=== PATIENT | female | born 1940 | race Caucasian/White ===

== ENCOUNTER 2019-10-08 15:24 | Outpatient (CLI) | payer MEDICARE, BC, SELFPAY ==
--- NOTE | ~2019-10-08 | US_ITS ---
EXAMINATION: US venous doppler UE DATE: 10/08/2019 16:00 INDICATION: Left upper extremity swelling. TECHNIQUE: Clark scale images with and without compression and Doppler images of the left upper extrem ity veins were obtained. COMPARISON: None. FINDINGS: The left internal jugular vein, subclavian vein, axillary vein, brachial veins, basilic vein, cephali c vein, radial vein, and ulnar vein are patent.] IMPRESSION: 1. Patent left upper extremity veins. No evidence of deep venous thrombosis. Reviewed, dictated and finalized at location A.
== END 2019-10-08 15:25 | disposition home or self-care (01) ==
PROVIDERS: PCP Family Medicine; Visit Provider Orthopaedic Surgery
DX: R22.32 Localized swelling, mass and lump, left upper limb (principal)
CPT/HCPCS: 93971

== ENCOUNTER 2020-03-02 13:58 | Outpatient (CLI) | payer MEDICARE, BC, SELFPAY ==
--- NOTE | ~2020-03-02 | MM_ITS ---
EXAMINATION: MM screening demetrice BI w sandra HISTORY: Screening TECHNIQUE: Craniocaudal and mediolateral oblique 3-D tomosynthesis images were obtained and synthetic 2-D images were generated. CAD analysis was submitted and interpreted. COMPARISON: Comparison to multiple prior studies sequentially, with oldest reviewed study dated 09/2013. BREAST PARENCHYMAL COMPOSITION: There are scattered areas of fibroglandular density. FINDINGS: There is no evidence of suspicious mass, calcification, or architectural distortion to sugg est malignancy in either breast. There has been no suspicious interval change. IMPRESSION: 1. No mammographic evidence of malignancy. 2. Recommend routine screening mammography in one year. BI-RADS Category 1: Negative Reviewed, dictated and finalized at location A. 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
== END 2020-03-02 13:59 | disposition home or self-care (01) ==
LOC: ANHIMG 14:00
PROVIDERS: PCP Family Medicine; Visit Provider Family Medicine
DX: Z12.31 Encounter for screening mammogram for malignant neoplasm of breast (principal)
CPT/HCPCS: 77063; 77067

== ENCOUNTER 2020-08-07 21:41 | Emergency (ER) | payer MEDICARE, BC, SELFPAY ==
--- NOTE | ~2020-08-07 | CT_ITS ---
EXAMINATION: CT brain wo con INDICATION: Head injury COMPARISON: None TECHNIQUE: Standard unenhanced head CT. The dose-length product (DLP) was 605.33 mGy-cm. The mA was a djusted according to patient size. Iterative reconstruction technique was employed. FINDINGS: There is no acute intraparenchymal hemorrhage. No evidence of mass lesion. No evidence of a cute infarction. There is mild periventricular and subcortical hypodensity probably related to small vessel ischemic disease. There is mild prominence of the sulci and ventricles related to cerebral atr ophy. Intracranial calcified cerebral atherosclerosis is noted. There are no extra-axial collections. There is no mass effect or midline shift. The orbits and soft tissues are unremarkable. The visuali zed sinuses and mastoid air cells are well aerated. IMPRESSION: 1. No acute intracranial abnormality. 2. Age related findings. Reviewed, dictated and finalized at location A.
--- NOTE | ~2020-08-07 | XR_ITS ---
EXAMINATION: XR shoulder LT min 2V INDICATION: Left shoulder pain after fall, shoulder replacement yesterday TECHNIQUE: Two views of the left shoulder are submitted. COMPARISON: None FINDINGS: There are expected changes of recent total shoulder arthroplasty. No fracture is identified . 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 Gas in the soft tissues likely rel ates to recent surgery. IMPRESSION: 1. Changes of left total shoulder arthroplasty without acute abnormality identified. Reviewed, dictated and finalized at location A. IMPRESSION: 1. Changes of left total shoulder arthroplasty without acute abnormality identi fied.
--- NOTE | ~2020-08-07 | CT_ITS ---
EXAMINATION: CT facial bones wo con DATE: 08/07/2020 22:44 INDICATION: Facial pain TECHNIQUE: Computed tomography (CT) of the facial bones and maxillofacial region was performed withou t intravenous contrast. The dose-length product (DLP) was 386.90 mGy-cm. Automated exposure control a nd iterative reconstruction technique were employed. COMPARISON: None. FINDINGS: There is facial soft tissue swelling of the nose and upper lip. No facial bone fracture is identified. The orbits are normal. The globes are intact. The paranasal sinuses are well aerated. The re is mild spondylosis of the visualized cervical spine. IMPRESSION: 1. Facial soft tissue swelling without facial bone fracture identified. Reviewed, dictated and finalized at location A.
[2020-08-07 21:41] VITALS: BP 125/57; PULSE 76; RESP 18; TEMP 36.9; O2SAT 98
--- NOTE | 2020-08-07 21:44 | ECG_ITS ---
Measurements Intervals [place] Rate: 94 P: 76 MA: 190 QRS: 80 QRSD: 149 T: 53 QT: 358 QTc: 448 Interpretive Statements SINUS RHYTHM RIGHT BUNDLE BRANCH BLOCK BASELINE ARTIFACT- I, II, AVR, AVL, AVF ABNORMAL ECG Electronically Signed On 08-11-2020 10:43:29 CDT by Kojo Vasquez D.O.
--- NOTE | 2020-08-07 22:03 | ED.FALL ---
HPI - Fall General Chief Complaint: Fall Stated Complaint: fall Time Seen by Provider: 08/07/20 21:46 Source: patient Mode of arrival: ambulatory Limitations: no limitations History of Present Illness HPI Narrative: Patient is a 79-year-old female complaining of left shoulder pain, facial pain after she fell face first after bending over to try to sit down and lost her balance prior to arrival. Patient states that she lost her balance. Patient recently had left shoulder surgery yesterday, reverse shoulder replacement . Patient denies any symptoms prior to the fall. Patient denies any headache, neck pain, chest pain, abdominal pain, back pain, hip pain or any other extremity pain/injury. Onset (ago): year(s) Related Data Home Medications Medication Instructions Recorded Confirmed baclofen 10 mg tablet 10 - 20 mg PO BID tablet 04/01/19 05/25/20 blood sugar diagnostic #10 each 04/01/19 05/25/20 blood-glucose meter #1 each 04/01/19 05/25/20 calcium carbonate 500 mg calcium 500 mg PO DAILY 04/01/19 05/25/20 (1,250 mg) tablet cholecalciferol (vitamin D3) 25 1,000 unit PO DAILY 04/01/19 05/25/20 mcg (1,000 unit) capsule multivit with min-folic 1 tablet PO DAILY 04/01/19 05/25/20 acid-lutein 400 mcg-250 mcg chewable tablet pen needle, diabetic 31 gauge x #30 each 04/01/19 05/25/20 5/16 hydrocodone-acetaminophen 0.5 - 1 tablet PO Q8H PRN 04/09/19 05/25/20 lansoprazole 15 mg capsule,delayed 15 mg PO DAILY 05/14/19 05/25/20 release loratadine 10 mg tablet 10 mg PO DAILY 05/14/19 05/25/20 hydroxyzine HCl 25 mg tablet 25 mg PO TID PRN 01/21/20 05/25/20 triamcinolone acetonide 0.05 % 1 applic TOPICAL DAILY 01/21/20 05/25/20 topical ointment Allergies Allergy/AdvReac Type Severity Reaction Status Date / Time clarithromycin Allergy Unknown metallic Verified 01/21/20 14:53 taste clonidine Allergy Unknown Confusion Verified 01/21/20 14:53 lisinopril Allergy Unknown Confusion Verified 01/21/20 14:53 Penicillins Allergy Unknown Anxiety Verified 01/21/20 14:53 Review of Systems Review of Systems: All systems reviewed & are unremarkable except as noted in HPI and below Constitutional: Constitutional: Denies body ache(s), Denies chills, Denies excessive sweating, Denies fatigue, Denies fever(s), Denies headache(s), Denies lethargy, Denies malaise, Denies weakness and Denies weight loss Eyes: Eyes: Denies blurry vision, Denies change in vision and Denies loss of vision ENT: Denies dizziness, Denies ear discharge, Denies headache(s), Denies epistaxis, Denies nasal congestion, Denies neck pain, Denies throat swelling and Denies tongue swelling Cardiovascular: Cardiovascular: Denies chest pain, Denies chest pain at rest, Denies chest pain with activity, Denies diaphoresis, Denies rapid heart rate, Denies edema, Denies irregular heart rhythm, Denies lightheadedness, Denies palpitations, Denies dyspnea and Denies dyspnea on exertion Respiratory: Respiratory: Denies chest congestion, Denies cough, Denies hemoptysis, Denies dyspnea and Denies dyspnea on exertion Gastrointestinal: Gastrointestinal: Denies abdominal pain, Denies melena, Denies hematochezia, Denies diarrhea, Denies nausea, Denies vomiting and Denies hematemesis Musculoskeletal: Musculoskeletal: Denies abnormal gait, Denies deformity, Denies joint swelling, Denies limited range of motion, Denies neck pain and Denies numbness Neurologic: Denies Abnormal speech present, Denies abnormal gait, Denies confusion, Denies dizziness, Denies headache(s), Denies focal weakness, Denies loss of vision, Denies numbness, Denies Other visual disturbances, Denies Sensory deficit (Neuro) and Denies weakness Psychiatric: Psychiatric: Denies confusion, Denies depression, Denies auditory hallucinations, Denies homicidal ideation and Denies suicidal ideation Endocrine: Endocrine: Denies cold intolerance, Denies excessive sweating, Denies fatigue, Denies heat intolerance and Denies palpit
[2020-08-08 00:08] VITALS: BP 156/65; PULSE 60; RESP 16; O2SAT 99
== END 2020-08-08 00:10 | disposition home or self-care (01) ==
PROVIDERS: Emergency Provider Emergency Medicine; PCP Family Medicine
DX: S00.83XA Contusion of other part of head, initial encounter (principal); S09.8XXA Other specified injuries of head, initial encounter; M25.512 Pain in left shoulder; J45.909 Unspecified asthma, uncomplicated; I87.2 Venous insufficiency (chronic) (peripheral); E78.5 Hyperlipidemia, unspecified; M19.90 Unspecified osteoarthritis, unspecified site; Z87.440 Personal history of urinary (tract) infections; Z87.19 Personal history of other diseases of the digestive system; Z98.1 Arthrodesis status; Z96.612 Presence of left artificial shoulder joint; I45.10 Unspecified right bundle-branch block; W18.39XA Other fall on same level, initial encounter; Z79.4 Long term (current) use of insulin
CPT/HCPCS: 70450; 70486; 73030; 93005; 99284

== ENCOUNTER 2020-12-24 16:55 | Outpatient (CLI) | payer MEDICARE, BC, SELFPAY ==
--- NOTE | ~2020-12-24 | DEXA_ITS ---
Bone Density Report Name: Sherly Knight Age: 80 Sex: Female Ethnicity: White Date of : 1940 Indication: postmenopausal; height loss; hysterectomy; Referring Provider: Maria Teresa Bose Study: Bone densitometry was performed. Exam Date: December 24, 2020 Accession number: [id number] Bone Density: Region BMD T-score Z-score Classification AP Spine (L1, L2, L3) 1.141 1.1 3.6 Normal Femoral Neck (Left) 0.655 -1.7 0.5 Osteopenia Total Hip (Left) 0.927 -0.1 1.8 Normal Total Hip Bilateral Avg 0.930 -0.1 1.9 Normal Femoral Neck (Right) 0.688 -1.5 0.8 Osteopenia Total Hip (Right) 0.932 -0.1 1.9 Normal World Health Organization criteria for BMD impression classify patients as: Normal (T-score at or above -1.0), Osteopenia (T-score between -1.0 and -2.5), or Osteoporosis (T-score at or below -2.5). 10-year Fracture Risk(1): Major Osteoporotic Fracture 11% Hip Fracture 2.5% Reported Risk Factors: [place] (), Neck BMD=0.655, BMI=48.2 (1) FRAX(R) Version 3.08. Fracture probability calculated for an untreated patient. Fracture probability may be lower if the patient has received treatment. Previous Exams: Region Exam Age BMD T-score BMD Change BMD Change Date g/cm2 vs Baseline vs Previous AP Spine(L1, L2, L3) 12/24/2020 80 1.141 1.1 0.122(12.0%)* -0.007(-0.6%)# 10/23/2018 78 1.148 1.2 0.129(12.7%)# 0.129(12.7%)# 08/05/2016 75 1.019 0.0 Total Hip(Left) 12/24/2020 80 0.927 -0.1 -0.071(-7.2%)* -0.027(-2.8%)# 10/23/2018 78 0.953 0.1 -0.045(-4.5%)# -0.045(-4.5%)# 08/05/2016 75 0.998 0.5 Total Hip(Right) 12/24/2020 80 0.932 -0.1 -0.045(-4.6%)* 0.029(3.3%)# 10/23/2018 78 0.902 -0.3 -0.074(-7.6%)# -0.074(-7.6%)# 08/05/2016 75 0.976 0.3 *Denotes significance at 95% confidence level, LSC for AP Spine = 0.022 g/cm2, LSC for Total Hip = 0.027 g/cm2 Clinical Information Provided by Patient: Has used the following medications: Calcium Has the following medical conditions: Hysterectomy Patient maximum height was 65 Menopause Age: 52 No regular weight bearing exercise Onset of menses at age 14 Number of children 2 Impression: The patient has low bone mass, based on the Left Femoral Neck T-score. The patient has an estimated ten-year risk of hip fracture of 2.5% and an estimated ten-year risk of major fracture of 11%, based on the WHO FRAX algorithm. No significant bone loss was observed.
== END 2020-12-24 16:56 | disposition home or self-care (01) ==
LOC: ANHIMG 16:59
PROVIDERS: PCP Family Medicine; Visit Provider Family Medicine
DX: Z78.0 Asymptomatic menopausal state (principal); M85.89 Other specified disorders of bone density and structure, multiple sites
CPT/HCPCS: 77080

== ENCOUNTER 2021-07-16 08:50 | Outpatient (CLI) | payer MEDICARE, BC, SELFPAY ==
--- NOTE | ~2021-07-16 | NM_ITS ---
EXAMINATION: NM yara stress w perfusion DATE: 07/16/2021 12:53 INDICATION: Chest pain TECHNIQUE: Rest images were obtained following intravenous administration of 9.8 mCi Tc99m tetrofosmi n (Myoview). The patient was infused intravenously with Lexiscan (Regadenoson). Then, 28.3 mCi Tc99m tetrofosmin (Myoview) was administered intravenously, and stress images were obtained. Data was recon structed into short axis and horizontal and vertical long axis SPECT images. Gated SPECT images were also obtained. COMPARISON: None. FINDINGS: Large moderate severity fixed perfusion defect involving the mid anteroseptal, the apical m id and basilar anterior segments, the mid and basilar anterolateral segments and the basilar posterol ateral segments. There is reversible ischemia at the apical lateral, the mid inferolateral and mid in ferior segments. There is normal left ventricular chamber size, wall motion and ejection fraction. Left ventricular ejection fraction measures >70%. IMPRESSION: 1. Large region of nonreversible ischemia involving segments as detailed above consistent with infarc t involving significant portions of the left anterior descending and left circumflex coronary arterie s. 2. Reversible ischemia in mid inferior, apical lateral and mid inferolateral segments. 2. Left ventricular ejection fraction measuring >70%. Reviewed, dictated and finalized at location A. IMPRESSION: 1. Large region of nonreversible ischemia involving segments as detailed above consistent with infarct involving significant portions of the left anterior moustapha cending and left circumflex coronary arteries. 2. Reversible ischemia in mid inferior, apical lateral and mid inferolateral se gments. 2. Left ventricular ejection fraction measuring >70%.
--- NOTE | 2021-07-16 08:59 | EST_ITS ---
Patient Info Name: Sherly Knight Age: 80 years : 1940 Gender: Female Ht: 64 in Wt: 275 lbs BSA: 2.45 m2 Exam Date: 07/16/2021 11:26 AM Exam Location: [facility] Stress Patient Status: Outpatient Admit Date: 07/16/2021 Staff Ordering Physician: Kojo Vasquez DO Attending Provider: Kojo Vasquez DO Exercise Technologist: Kailee Dang RDCS Exercise Physician: Kojo Vasquez DO Exam Type: CA stress yara w NM Study Info Indications R07.9 - Chest pain, unspecified A regadenoson stress test was performed. Summary 1. 1. Negative lexiscan stress test for ischemic ST changes by ECG criteria. 2. 2. Baseline hypertension. 3. 3. Nuclear scan to follow and will be reported separately. Please correlate with it. 4. 4. Patient informed of the above results. Protocol: Lexiscan Stress ECG Details Stage: REST Duration (min): 6 min : 34 sec HR (bpm): 77 SBP (mmHg): 179 DBP (mmHg): 67 Stage: REST Duration (min): 27 min : 20 sec HR (bpm): 78 SBP (mmHg): 179 DBP (mmHg): 67 Stage: STAGE 1 Duration (min): 1 min : 0 sec HR (bpm): 89 SBP (mmHg): 179 DBP (mmHg): 67 Stage: RECOVERY Duration (min): 1 min : 0 sec HR (bpm): 91 SBP (mmHg): 164 DBP (mmHg): 48 Stage: RECOVERY Duration (min): 2 min : 0 sec HR (bpm): 83 SBP (mmHg): 170 DBP (mmHg): 45 Stage: RECOVERY Duration (min): 3 min : 0 sec HR (bpm): 81 SBP (mmHg): 165 DBP (mmHg): 49 Stage: RECOVERY Duration (min): 3 min : 8 sec HR (bpm): 81 SBP (mmHg): 165 DBP (mmHg): 49 Rest HR: 78 bpm Peak HR: 93 bpm Rest Sys BP: 179 mmHg Peak Sys BP: 170 mmHg Max Pred HR: 142 bpm % Max Pred HR: 65 % Target HR: 121 bpm Max RPP: 15,810 bpm*mmHg Termination Reason: Completed protocol Cardiac Symptoms: Shortness of breath Total Time: 1 min : 0 sec Rest Hall BP: 67 mmHg Peak Hall BP: 45 mmHg Total Dose: 0.4 mg Resting ECG Sinus rhythm, RBBB, inferior infarct, age indeterminate. Stress ECG No ST changes. Arrhythmias None. Report Signatures
== END 2021-07-16 08:51 | disposition home or self-care (01) ==
LOC: ANHCARD 08:55
PROVIDERS: PCP Family Medicine; Visit Provider Internal Medicine Cardiovascular Disease
DX: R07.9 Chest pain, unspecified (principal)
CPT/HCPCS: 78452; 93017; A9502; J2785

== ENCOUNTER 2021-08-04 08:16 | Outpatient (CLI) | payer MEDICARE, BC, SELFPAY ==
--- NOTE | 2021-08-04 08:40 | ECHO_ITS ---
Patient Info Name: Sherly Knight Age: 80 years : 1940 Gender: Female Ht: 64 in Wt: 285 lbs BSA: 2.49 m2 HR: 50 bpm BP: 167 / 59 mmHg Technical Quality: Poor Exam Date: 08/04/2021 9:07 AM Exam Location: [facility] Patient Status: Outpatient Admit Date: 08/04/2021 Staff Ordering Physician: Kojo Vasquez DO Shoeblack: Josefa Johnson RDCS Attending Provider: Kojo Vasquez DO Referring Physician: Pedro NUÑEZ; Exam Type: CA echo dop color flow w con Study Info Indications - murmur Complete two-dimensional, color flow and Doppler transthoracic echocardiogram is performed with contrast to opacify the left ventricle and to improve 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 Contrast/Agitated Saline Contrast/Ag. Saline: Definity Amount: 2.00 ml Administered By: Josefa Johnson [facility] Existing IV Access: Yes IV Access Condition: patent with no signs of infiltration New IV Access: Left Site Condition: IV removed Reason for Poor Study: patient body habitus Summary 1. Technically suboptimal study due to poor sonographic images. 2. Definity contrast administered improved wall motion interpretation. 3. Left ventricular chamber dimension is normal. 4. Left ventricular systolic function is normal, estimated at 60-65%. 5. The left ventricular diastolic function is grade I diastolic dysfunction. 6. E/e' 11 is mildly elevated. 7. There is mild aortic valve sclerosis. 8. The mitral valve has moderately calcified annulus. 9. There is trace tricuspid valve regurgitation. 10. No pulmonary hypertension, estimated pulmonary arterial systolic pressure is 14 mmHg. Left Ventricle Technically suboptimal study due to poor sonographic images. Definity contrast administered improved wall motion interpretation. E/e' 11 is mildly elevated. Left ventricular chamber dimension is normal. Left ventricular systolic function is normal, estimated at 60-65%. The left ventricular diastolic function is grade I diastolic dysfunction. Right Ventricle Right ventricular chamber dimension is not well visualized. Left Atria Left atrial chamber dimension is normal. Right Atria Right atrial chamber dimension is normal. Aortic Valve The aortic valve is trileaflet. There is mild aortic valve sclerosis. There is no aortic valve stenosis. There is no aortic valve regurgitation. Pulmonic Valve There is no pulmonic regurgitation. Mitral Valve The mitral valve has moderately calcified annulus. There is no mitral valve stenosis. There is no mitral valve regurgitation. Tricuspid Valve There is trace tricuspid valve regurgitation. No pulmonary hypertension, estimated pulmonary arterial systolic pressure is 14 mmHg. Pericardium/Pleural There is no pericardial effusion. Inferior Vena Cava Normal inferior vena cava with >50% collapse upon inspiration consistent with normal right atrial pressure, 5 mmHg. Aorta The aortic root size at the sinus of Valsalva is normal. Left Ventricular Outflow Tract Name Value Normal LVOT 2D LVOT Diameter 1.96 cm LVOT Doppler
[2021-08-04] MEDS: PERFLUTREN LIPID MICROSPHERES 1.5 ML VIAL DILUTED TO 10 ML TOTAL VOLUME IV PUSH (10:00)
== END 2021-08-04 08:17 | disposition home or self-care (01) ==
PROVIDERS: PCP Family Medicine; Visit Provider Internal Medicine Cardiovascular Disease
DX: R01.1 Cardiac murmur, unspecified (principal)
CPT/HCPCS: C8929; Q9957

== ENCOUNTER 2021-08-09 00:20 | Day surgery (SDC) | payer MEDICARE, BC, SELFPAY ==
[2021-08-06 14:13] VITALS: BMI 48.0
[2021-08-09] VITALS (9 sets, daily range): BP systolic 158–184; BP diastolic 56–67; PULSE 57–66; RESP 14–21; TEMP 36.9; O2SAT 95–97; BMI 50.3
[2021-08-09 08:59] LABS: Basophils Percent Auto 0.4 % (0.2-1.2); Eosinophils Absolute Auto 0.4 K/mm3 (0-0.3); Eosinophils Percent Auto 4.3 % (0-4.4); Hematocrit 35.5 % (37.0-47.0); Hemoglobin 11.7 g/dL (12.0-15.0); Immature Granulocyte Absolute 0.02 K/mm3 (0.00-0.031); Immature Granulocyte Percent A 0.2 % (0-0.5); Lymphocytes Absolute Auto 3.11 K/mm3 (0.9-3.2); Lymphocytes Percent Auto 33.2 % (18.3-44.2); Mean Corpuscular Hemoglobin 28.8 pg (26-34); Mean Corpuscular Volume 87.4 fl (80-100); Mean Platelet Volume 12.1 fl (7.4-10.4); Monocytes Absolute Auto 0.6 K/mm3 (0.1-0.6); Monocytes Percent Auto 6.2 % (2.6-8.5); Neutrophils Absolute Auto 5.2 K/mm3 (1.3-6.7); Neutrophils Percent Auto 55.7 % (45.5-73.1); Platelet Count Result 193 k/mm3 (150-375); Red Blood Count 4.06 M/mm3 (4.2-5.4); Red Cell Distribution Width 16.1 % (11.5-14.5); White Blood Count 9.4 K/mm3 (4.5-10.0)
[2021-08-09 09:10] LABS: INR 1.1; Prothrombin Time 13.7 Seconds (11.1-14.7)
[2021-08-09 09:14] LABS: Anion Gap 8 mmol/L (8-16); Blood Urea Nitrogen 21 mg/dL (7-17); Calcium 9.8 mg/dL (8.4-10.2); Carbon Dioxide 25 mmol/L (22-30); Chloride 107 mmol/L (98-107); Estimated CRCL calculation 61 ml/min; Estimated Glomerular Filt Rate > 60; Glucose 136 mg/dL (65-110); Potassium 3.8 mmol/L (3.4-5.0); Sodium 140 mmol/L (137-145)
--- NOTE | 2021-08-09 12:30 | ECG_ITS ---
Measurements Intervals [place] Rate: 57 P: 58 [place]: 170 QRS: 6 QRSD: 139 T: 41 QT: 451 QTc: 443 Interpretive Statements SINUS BRADYCARDIA WITH SINUS ARRHYTHMIA RIGHT BUNDLE BRANCH BLOCK [120+ ms QRS DURATION, UPRIGHT V1, 40+ ms S IN I/aVL/V4/V5/V6] NONSPECIFIC T-WAVE ABNORMALITY ABNORMAL ECG Electronically Signed On 08-10-2021 17:56:46 CDT by Manuel Gutierrez M.D.
--- NOTE | 2021-08-09 12:34 | WPDCARDPROC ---
Cardiac Cath Procedure Note Date of procedure:: 08/09/21 Performing physician:: Tommie Rm MD Indication:: intermittent chest pain abnormal nuclear stress test morbid obesity diabetes Brief clinical history:: this is a 80-year-old woman who is morbidly obese and diabetic who has been experiencing intermittent chest pain for several months. A nuclear stress test was interpreted as showing a inferior inferoapical perfusion defect compatible with ischemia. In this setting angiography has been recommended. No previous documented history of coronary disease. Procedure Procedure performed:: Left ventriculogram coronary angiogram PCI(CANDI) to OM1 Sedation/Medication given:: fentanyl 25 mg Versed 2 case start time 11:37 a.m. case end time 12:22 p.m. sedation provided by Zhane Rojas RN, trained observer Access site:: right femoral artery Estimated blood loss:: 30 cc Procedure note:: patient was brought to the cardiac catheterization lab in the postabsorptive state where the right femoral triangle was prepped and draped in the usual fashion. Anesthesia was provided with 1% lidocaine infiltrated locally. Using the modified Seldinger technique the femoral artery was punctured and a 5 Angolan vascular sheath was placed. After this I used a 5 Angolan angled pigtail catheter to measure left-sided hemodynamics and to inject LV g in the 30 degree MENDEZ projection. After this I used standard 5 Angolan JL4 catheter to engage and inject the left coronary artery. Then used a 5 Angolan JR4 catheter to engage inject the right coronary artery. Cineangiograms were reviewed as well as the patient's stress test findings. PCI of the OM branch was recommended in the carried out as detailed below. Prior to PCI the 5 Angolan sheath was changed over the guidewire for a 6 Angolan device. She was systemically anticoagulated Angiomax intervention. She received the balance of full-dose aspirin and 600 mg of clopidogrel prior to PCI. Following PCI and angiogram was done of the femoral artery through the sheath after which an Angio-Seal device was deployed with a good hemostatic result. Findings:: Hemodynamics: Central aortic pressure is 174 over 68 left ventricle 174 5 end-diastolic pressure 22. No significant gradient on pullback across the aortic valve. Left ventricle: The LV is normal in size contractility appears to be hyperdynamic with an ejection fraction I would visually estimated to be 75%. The left main coronary artery is nicely patent the left anterior descending is a medium caliber artery extending down to around the apex the mild luminal irregularities in the LAD but no significant lesions are seen. The major diagonal branch of the LAD has a moderately long stenosis of 80% beginning right at its ostium from the trunk of the LAD. There is DREW 3 flow in this diagonal. The circumflex is a moderate caliber artery dominant to the posterior circulation the circumflex system has high-grade stenosis of 90% in mid shaft of the major obtuse marginal branch. The remainder of the circumflex is free of significant lesi ons. The right coronary artery is moderate caliber and nondominant giving rise to 2 RV branches. The right coronary is free of disease. Intervention: Left coronary artery was engaged using a 6 Angolan CLS 3.5 guiding catheter. I used a 0.014 BMW guidewire to wire the OM branch and then pre-dilated the target lesion using a 2.5 x 15 mm Flo PTCA balloon. Following this the lesion was stented using a 2.75 x 18 mm Orsiro stent with an excellent anatomical result. The device was deployed at 12 atmospheres with an excellent result no disruption dissection or distal embolization. Conclusion:: 1. Two vessel coronary artery disease involving proximal 80% stenosis of the ostial segment of the major diagonal branch of the LAD. The LAD itself is not disease. There is also 90% discrete stenosis in the largest OM branch of
--- NOTE | 2021-08-09 16:59 | SUR.PHASEII ---
i'v d/c tip intact. patient d/c instruction given with son at bedside. written instructions given. new medication information/ education given. all new meds sent to pharmacy. patient verbalizes understanding and all questions and concerns addressed. patient transferred via w[place] to personal vehicle
== END 2021-08-09 17:00 | disposition home or self-care (01) ==
PROVIDERS: PCP Family Medicine; Visit Provider Specialist
PROC: 4A023N7 Measurement of Cardiac Sampling and Pressure, Left Heart, Percutaneous Approach (ICD-10-PCS; CPT 93452; principal; 2021-08-09 10:00)
PROC: (CPT 92928; 2021-08-09 10:00)
DX: I25.10 Atherosclerotic heart disease of native coronary artery without angina pectoris (principal); R07.89 Other chest pain; E11.9 Type 2 diabetes mellitus without complications; R00.1 Bradycardia, unspecified; I45.10 Unspecified right bundle-branch block; D68.51 Activated protein C resistance; I10 Essential (primary) hypertension; E78.5 Hyperlipidemia, unspecified; M54.9 Dorsalgia, unspecified; Z96.82 Presence of neurostimulator; D64.9 Anemia, unspecified; M19.90 Unspecified osteoarthritis, unspecified site; J45.909 Unspecified asthma, uncomplicated; L30.9 Dermatitis, unspecified; R00.2 Palpitations; Z98.1 Arthrodesis status; Z79.4 Long term (current) use of insulin
CPT/HCPCS: 36415; 80048; 85025; 85610; 93005; 93458; A9270; C1725; C1760; C1769; C1784; C1887; C1894; C9600; G0269; J0583; J1644; J2250; J3010; J7040

== ENCOUNTER 2022-04-13 14:12 | Outpatient (CLI) | payer MEDICARE, BC, SELFPAY ==
[2022-04-13 16:13] LABS: Influenza A QL RT-PCR Negative (Negative); Influenza B QL RT-PCR Negative (Negative); RSV RNA, RT-PCR Negative (Negative); SARS-CoV-2 RNA PCR Positive
== END 2022-04-13 14:13 | disposition home or self-care (01) ==
LOC: ANHLAB 14:14
PROVIDERS: PCP Family Medicine; Visit Provider Nurse Practitioner
DX: U07.1 COVID-19 (principal)
CPT/HCPCS: 87637

== ENCOUNTER 2023-04-10 15:02 | Outpatient (CLI) | payer MEDICARE, BC, SELFPAY ==
--- NOTE | ~2023-04-10 | DEXA_ITS ---
Bone Density Report Name: ERYN DUVAL Age: 82 Sex: Female Ethnicity: White Date of : 1940 Indication: postmenopausal; screening for osteoporosis; height loss; hysterectomy; Referring Provider: HERACLIO, PEPITO [place] Study: Bone densitometry was performed. Exam Date: April 10, 2023 Accession number: [id number] Bone Density: Region BMD T-score Z-score Classification AP Spine(L1, L4) 1.171 1.2 3.9 Normal Femoral Neck (Left) 0.657 -1.7 0.6 Osteopenia Total Hip (Left) 0.853 -0.7 1.4 Normal Femoral Neck (Right) 0.650 -1.8 0.5 Osteopenia Total Hip (Right) 0.869 -0.6 1.5 Normal Total Hip Mean 0.861 -0.7 1.5 Normal World Health Organization criteria for BMD impression classify patients as: Normal (T-score at or above -1.0), Osteopenia (T-score between -1.0 and -2.5), or Osteoporosis (T-score at or below -2.5). 10-year Fracture Risk(1): Major Osteoporotic Fracture 12% Hip Fracture 2.9% Reported Risk Factors: [place] (), Neck BMD=0.657, BMI=44.4 (1) FRAX(R) Version 3.08. Fracture probability calculated for an untreated patient. Fracture probability may be lower if the patient has received treatment. Clinical Information Provided by Patient: Has used the following medications: Vitamin D, Calcium Has the following medical conditions: Hysterectomy Patient maximum height was 64 Menopause Age: 52 No regular weight bearing exercise Does not regularly consume dairy products Onset of menses at age 14 Number of children 2 Impression: The patient has low bone mass, based on the Right Femoral Neck T-score. The patient has an estimated ten-year risk of hip fracture of 2.9% and an estimated ten-year risk of major fracture of 12%, based on the WHO FRAX algorithm. Discussion: BONE DENSITY IS LOW AT ONE OR MORE SKELETAL SITES. This patient's lowest T-score is low at one or more skeletal sites. It meets the World Health Organization's (WHO) criteria for ?low bone mass? (T-score between -1.0 and -2.5). The patient's 10-year risk of fracture as calculated by FRAX is less than the threshold where pharmacological therapy is recommended by the National Osteoporosis Foundation (NOF). However, all treatment decisions require clinical judgment and consideration of individual patient factors, including patient preferences, comorbidities, previous drug use, risk factors not captured in the FRAX model (e.g., frailty, falls, vitamin D deficiency, increased bone turnover, interval significant decline in bone density) and possible under or overestimation of fracture risk by FRAX. The patient should follow a healthful lifestyle (good nutrition with adequate calcium and vitamin D, and appropriate weight-bearing exercise). Follow-Up: Consider repeating this study in 2 to 3 years to reassess this pat
== END 2023-04-10 15:03 | disposition home or self-care (01) ==
LOC: ANHIMG 15:04
PROVIDERS: PCP Family Medicine; Visit Provider Nurse Practitioner Family
DX: M85.88 Other specified disorders of bone density and structure, other site (principal); Z78.0 Asymptomatic menopausal state
CPT/HCPCS: 77080

== ENCOUNTER 2024-03-11 07:26 | Outpatient (CLI) | payer MEDICARE, BC, SELFPAY ==
--- NOTE | 2024-03-11 08:06 | ECHO_ITS ---
Patient Info Name: Sherly Knight Age: 83 years : 1940 Gender: Female Ht: 64 in Wt: 225 lbs BSA: 2.20 m2 HR: 76 bpm BP: 197 / 83 mmHg Technical Quality: Poor Exam Date: 03/11/2024 8:40 AM Exam Location: Echo Lab Patient Status: Outpatient Admit Date: 03/11/2024 Staff Ordering Physician: Kojo Vasquez DO Psych Tech: Kailee Dang RDCS Attending Provider: Kojo Vasquez DO Referring Physician: Pedro NUÑEZ; Exam Type: CA echo dop color flow w con Study Info Indications R01.1 - Cardiac murmur, unspecified Complete two-dimensional, color flow and Doppler transthoracic echocardiogram is performed with contrast to opacify the left ventricle and to improve 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 Contrast/Agitated Saline Contrast/Ag. Saline: Definity Amount: 3.00 ml Administered By: Kailee Dang RDCS New IV Access: Antecubital Space and Left Site Condition: No extravasation, Site dressing applied and IV removed Reason for Poor Study: patient body habitus Summary 1. Definity contrast administered improved wall motion interpretation. 2. Left ventricular chamber dimension is normal. 3. Ventricular septum is sigmoid shaped. 4. Left ventricular systolic function is normal, estimated at 65-70%. 5. There is mild concentric increased left ventricular wall thickness. 6. E/e' 7 is not elevated. 7. Left atrial chamber dimension is mildly enlarged. 8. There is mild aortic valve sclerosis. 9. The mitral valve has mildly calcified annulus. 10. No pulmonary hypertension, estimated pulmonary arterial systolic pressure is 19 mmHg. Left Ventricle E/e' 7 is not elevated. Ventricular septum is sigmoid shaped. Definity contrast administered improved wall motion interpretation. Left ventricular chamber dimension is normal. Left ventricular systolic function is normal, estimated at 65-70%. There is mild concentric increased left ventricular wall thickness. The left ventricular diastolic function is grade I diastolic dysfunction. Right Ventricle Right ventricular chamber dimension is normal. Right ventricular systolic function is normal. Left Atria Left atrial chamber dimension is mildly enlarged. Right Atria Right atrial chamber dimension is normal. Aortic Valve The aortic valve is trileaflet. There is mild aortic valve sclerosis. There is no aortic valve stenosis. There is no aortic valve regurgitation. Pulmonic Valve There is no pulmonic regurgitation. Mitral Valve The mitral valve has mildly calcified annulus. There is no mitral valve stenosis. There is no mitral valve regurgitation. Tricuspid Valve There is no tricuspid valve regurgitation. No pulmonary hypertension, estimated pulmonary arterial systolic pressure is 19 mmHg. Pericardium/Pleural There is no pericardial effusion. Inferior Vena Cava Normal inferior vena cava with >50% collapse upon inspiration consistent with normal right atrial pressure, 5 mmHg. Aorta The aortic root size at the sinus of Valsalva is normal. Left Ventricular Outflow Tract Name Value Normal LVOT 2D LVOT Diameter 2.03 cm LVOT Doppler LVOT Peak Gradient 7 mmHg LVOT Mean Gradient 4 mmHg LVOT VTI 29.65 cm LVOT VTI/AV VTI Ratio 0.81 LVOT Stroke Volume 95.80 ml LVOT CO 7.14 l/min LVOT CI 3.25 L/min/m2 Pulmonic Valve Name Value Normal RVOT Doppler RVOT Peak Gradient 3 mmHg PV Doppler PV Peak Gradient 4 mmHg Mitral Valve Name Value Normal MV Doppler MV Decel [place] 254.14 cm/s2 MV PHT 0 s MV Area (PHT) 3.66 cm2 4.00-5.00 MV Diastolic Function MV E Peak Velocity 52.66 cm/s MV A Peak Velocity 108.26 cm/s MV E/A 0.49 MV Decel Time 0 s Tricuspid Valve Name Value Normal TV Regurgitation Doppler TR Peak Velocity 188.47 cm/s TR Peak Gradient 14 mmHg Estimated PAP/RSVP RA Pressure 5 mmHg <=5 PA Systolic Pressure 19 mmHg <36 RV Systolic Pressure 19 mmHg <36 Aorta Name Value Normal Ascending Aorta Ao Root Diameter (MM) 3.53 cm Ao Root Diam Index (MM) 1.61 cm/m2 Aortic Valve Name Value Normal AV Doppler AV Peak Velocity 165.68 cm/s AV Peak Gradient 11 mmHg AV Mean Gradient 7 mmHg AV VTI 36.42 cm AV Area (Cont Eq VTI) 2.63 cm2 >=3.00 AV Area (Cont Eq Ilan) 2.64 cm2 AV Regurgitation 2D LVOT Area 3.23 cm2 Ventricles Name Value Normal LV Dimensions 2D/MM IVS Diastole Thickness (MM) 1.16 cm 0.60-0.90 LVID Diastole (MM) 6.92 cm 3.80-5.20 LVIW Diastolic Thickness (MM) 1.23 cm 0.60-0.90 LVID Systole (MM) 5.07 cm 2.20-3.50 LVOT Diameter 2.03 cm LV Mass (MM Cubed) 397.21 g 67.00-162.00 LV Mass Index (MM Cubed) 0.02 g/cm2 0.00-0.01 Relative Wall Thickness (MM) 0.36 LV Fractional Shortening/Ejection Fraction 2D/MM LV Fractional Shortening (MM) 27 % 27-45 LV EF (MM Teicholz) 51 % 54-74 LV Diastolic Volume (4C MOD) 48.53 ml LV EF (4C MOD) 64 % LV Diastolic Volume (2C MOD) 51.39 ml LV EF (2C MOD) 55 % LV Diastolic Volume (BP MOD) 50.51 ml 46.00-106.00 LV Diastolic Volume Index (BP MOD) 0.02 l/m2 0.03-0.06 LV Systolic Volume (BP MOD) 20.07 ml 14.00-42.00 LV Systolic Volume Index (BP MOD) 0.01 l/m2 0.01-0.02 LV EF (BP MOD) 60 % 54-74 LV Diastolic Length (4C) 8.13 cm LV Systolic Length (4C) 6.38 cm LV Stroke Volume (4C MOD) 31.29 ml Atria Name Value Normal LA Dimensions LA Dimension (MM) 3.94 cm 2.70-3.80 LA Volume (4C A-L) 66.80 ml LA Volume (BP A-L) 75.93 ml RA Dimensions RA Area (4C) 13.20 cm2 <=18.00 Report Signatures
[2024-03-11] MEDS: PERFLUTREN LIPID MICROSPHERES 1.5 ML VIAL DILUTED TO 10 ML TOTAL VOLUME IV PUSH (09:10)
--- NOTE | 2024-03-11 12:03 | IVDEFINITY ---
Prior to administration of IV Definity the patient was educated on the risks and benefits of the imaging enhancing agent including potential adverse side effects. The patient verbalized understanding. Allergies were verified. No exclusion criteria were identified and at least one of the following inclusion criteria were met: 1) physician request, 2) patient technically difficult to image (per the [place] [employer] guidelines of two or more segments not discernable within the apical view), or 3) questionable left ventricular function. ?
== END 2024-03-11 07:27 | disposition home or self-care (01) ==
LOC: ANHCARD 07:28
PROVIDERS: PCP Family Medicine; Visit Provider Internal Medicine Cardiovascular Disease
DX: I34.81 Nonrheumatic mitral (valve) annulus calcification (principal); R01.1 Cardiac murmur, unspecified
CPT/HCPCS: C8929; Q9957